=== PATIENT | female | born 1995 | race Caucasian/White ===

== ENCOUNTER 2016-12-14 23:54 | Emergency (ER) | payer OTHER ==
[~2016-12-14] VITALS: Ht 157.5 cm; Wt 84.0 kg
[2016-12-14 23:56] VITALS: Ht 157.5 cm; Wt 84.0 kg
--- NOTE | 2016-12-15 01:24 | ERD ---
ER Documentation Chief Complaint Date/Time DATE: 12/15/16 TIME: 01:11 Chief Complaint LACERATION TO RIGHT RING FINGER X1 HR AGO. +TETANUS HPI 21-year-old female presents to emergency department for laceration wound and the right fourth finger after accidentally cutting it with aluminum blade tonight. Patient discussed pain as sharp pain, 8/10 , is worse upon touching the area. Bleeding is controlled at this time. Patient denies any foreign body. Able to move the joint of the affected finger without any restriction. Unknown last tetanus immunization. ROS All systems reviewed and are negative except as per history of present illness. Medications Home Meds Reported Medications [none] Unknown Strength No Conflict Check 12/15/16 Allergies Allergies: Coded Allergies: No Known Allergy (Unverified , 12/15/16) PMhx/Soc Medical and Surgical Hx: pt denies Medical Hx, pt denies Surgical Hx Hx Alcohol Use: No Hx Substance Use: No Hx Tobacco Use: No Smoking Status: Never smoker FmHx Family History: No coronary disease, No diabetes, No other Physical Exam Vitals Vital Signs Date Time Temp Pulse Resp B/P Pulse Ox O2 Delivery O2 Flow Rate FiO2 12/14/16 23:56 98.2 85 18 122/74 95 Physical Exam GENERAL: The patient is well developed and appropriate for usual state of health, in no apparent distress. CHEST: Clear to auscultation bilaterally. There are no rales, wheezes or rhonchi. HEART: Regular rate and rhythm. No murmurs, clicks, rubs or gallops. No S3 or S4. ABDOMEN: Soft, nontender and nondistended. Good bowel sounds. No rebound or guarding. No gross peritonitis. No gross organomegaly or masses. No Reyes sign or McBurney point tenderness. BACK: No midline or flank tenderness. EXTREMITIES: Equal pulses bilaterally. There is no peripheral clubbing, cyanosis or edema. No focal swelling or erythema. Full range of motion. Grossly neurovascularly intact. NEURO: Alert and oriented. Cranial nerves 2-12 intact. Motor strength in all 4 extremities with 5/5 strength. Sensation grossly intact. Normal speech and gait. SKIN: Noted 1.5 cm superficial laceration wound in the palmar aspect of the right fourth finger, no tendon involvement noted. No foreign body. There is no apparent rash or petechia. The skin is warm and dry. HEMATOLOGIC AND LYMPHATIC: There is no evidence of excessive bruising or lymphedema. No gross cervical, axillary, or inguinal lymphadenopathy. Results 24 hrs Current Medications Medications (Trade) Dose Ordered Sig/Sabrina Route PRN Reason Start Time Stop Time Status Last Admin Dose Admin Diphtheria/ Tetanus/Acell Pertussis (Adacel) 0.5 ml ONCE ONCE IM* 12/15/16 01:30 12/15/16 01:31 DC 12/15/16 02:00 Lidocaine (Xylocaine 2% (Mdv) 20 ml) 2 ml ONCE ONCE INJ 12/15/16 01:30 12/15/16 01:31 DC Tdap was given to prevent tetanus. Patient tolerated medication well. Procedures/MDM Procedure Note: After obtaining informed consent, the wound was irrigated with 250 ml of normal saline and cleaned with diluted betadine. Using aseptic technique, 3 ml of 1% lidocaine was injected on the subcutaneous tissue of the laceration wound for anesthetic. After the anesthetic, the wound was approximated using 3 interrupted sutures of 4-0 Prolene. After the procedure, the wound was well approximated. Patient tolerated procedure well. Bacitracin was applied on the area and a dry dressing. Metal splint was applied afterwards. Medical Decision Making: Patient's pain is most likely consistent with a laceration wound on affected area. No foreign body, no tendon involvement.. There is no suspicion for neurovascular compromise. Patient has intact sensation and circulation of the affected extremity. There is low suspicion for septic arthritis. Patient does not have any fever. Radiology exam is not indicated at this time. Disposition: Home. Patient is given prescription for ibuprofen for pain, Keflex prevent infection. Patient was advised to elevate the affected area and apply ice on affected area. Patient was advised that if symptoms are worse, numbness , tingling, high fever, unable to move joint, worsening symptoms, to return to emergency department immediately. Otherwise, patient is advised to follow up with the primary care doctor in 2 days for wound check, 7-10 days for suture removal Departure Diagnosis: Primary Impression: Finger laceration Encounter type: initial encounter Qualified Code: S61.219A - Finger laceration, initial encounter Condition: Stable Patient Instructions: Laceration, General () Additional Instructions: Patient is given prescription for ibuprofen for pain, Keflex prevent infection. Patient was advised to elevate the affected area and apply ice on affected area. Patient was advised that if symptoms are worse, numbness, tingling, high fever, unable to move joint, worsening symptoms, to return to emergency department immediately. Otherwise, patient is advised to follow up with the primary care doctor in 2 days for wound check, 7-10 days for suture removal MAMADOU CHARLES NP Dec 15, 2016 01:24
[2016-12-15] MEDS ORDERED: DIPHTH/TET/ACEL PERTUSS (ADULT) 0.5 ML VIAL IM* ONE (01:30)
[2016-12-15] MEDS ORDERED: LIDOCAINE 2% (MDV) 20 ML INJ INJ ONE (01:30)
[2016-12-15] MEDS ORDERED: CEPH-443 PO (02:19)
[2016-12-15] MEDS ORDERED: IBUP-1542 PO (02:19)
== END 2016-12-15 02:34 | disposition home or self-care (01) ==
LOC: FTE 23:54
DX: S61.214A Laceration without foreign body of right ring finger without damage to nail, initial encounter (principal); W26.8XXA Contact with other sharp object(s), not elsewhere classified, initial encounter; Y92.9 Unspecified place or not applicable; Z23 Encounter for immunization
CPT/HCPCS: 12001; 90471; 90715; Z7502

== ENCOUNTER 2017-03-17 14:02 | Emergency (ER) | payer OTHER ==
[~2017-03-17] VITALS: Ht 157.5 cm; Wt 88.5 kg
[~2017-03-17 14:02] MED LIST: CEPH-443 PO; IBUP-1542 PO
[2017-03-17 14:05] VITALS: Ht 157.5 cm; Wt 88.5 kg
--- NOTE | 2017-03-17 16:31 | RADRPT ---
PROCEDURE: US Pelvis CLINICAL INDICATION: Vaginal bleeding, pelvic pain TECHNIQUE: Multiple sonographic images of the pelvis were obtained utilizing a transabdominal and endovaginal technique. The images were reviewed on a PACS workstation. COMPARISON: None. LMP: 03/03/2017 FINDINGS: The uterus measures 6.7 x 3.2 x 5.4 cm and is retroverted and retroflexed. The endometrial echo comp alicja measures 13 mm in thickness. No discrete lesion is seen. No abnormal vascularity is identified in the endometrium. The right ovary measures 2.7 x 1.7 x 1.4 cm. The left ovary measures 3.1 x 2.1 x 2.5 cm. There is no rmal vascular flow in both ovaries. No significant ovarian lesions are seen. There is mild free fluid in the right adnexa. IMPRESSION: Unremarkable pelvic ultrasound, as above. RPTAT: EE Physician Nahid Date Time Electronically viewed and signed by Physician Nahid on 03/17/2017 16:31 /
[2017-03-17 16:44] LABS: ADD UMIC YES; UR ASCORBIC ACID NEGATIVE (NEGATIVE); UR BILIRUBIN (Dip) NEGATIVE (NEGATIVE); UR BLOOD (Dip) 3+ mg/dL (NEGATIVE); UR CLARITY CLOUDY (CLEAR); UR COLOR RED (YELLOW); UR GLUCOSE (Dip) NEGATIVE (NEGATIVE); UR KETONES (Dip) NEGATIVE (NEGATIVE); UR LEUKOCYTE ESTERASE (Dip) 3+ Leu/ul (NEGATIVE); UR MUCUS FEW /HPF (NONE SEEN); UR NITRITE (Dip) NEGATIVE (NEGATIVE); UR RBC > 182 /HPF (0-5); UR SPECIFIC GRAVITY (Dip) 1.019 (1.003-1.030); UR SQUAMOUS EPITHELIAL CELL FEW /HPF (FEW); UR TOTAL PROTEIN (Dip) 2+ mg/dl (NEGATIVE); UR UROBILINOGEN (Dip) NEGATIVE (NEGATIVE)
[2017-03-17] MEDS ORDERED: CEPH-443 PO (17:05)
--- NOTE | 2017-03-17 17:15 | ERD ---
ER Documentation Chief Complaint Date/Time DATE: 03/17/17 TIME: 17:08 Chief Complaint lmp 03/09/17 today started bleeding again HPI This is a 21-year-old female presents to the ER with urinary frequency and dysuria that started today. She states that she was bleeding earlier today, and is unsure if bleeding was coming from her urethra or vagina. Patient denies any fevers or chills. She denies any back pain. She has not had any nausea vomiting or diarrhea. She is currently sexually active with 1 partner in a monogamous relationship and uses condoms. His last normal menstrual period was on March 04 and lasted to 09 March. She denies any vaginal discharge, she also denies any abdominal pain. ROS 12 point review of systems was done, all negative except per HPI. Medications Home Meds Active Scripts Cephalexin* (Keflex*) 500 Mg Capsule, 500 MG PO BID for 7 Days, CAP Prov:LELA BRAN 03/17/17 Cephalexin* (Keflex*) 500 Mg Capsule, 500 MG PO QID for 5 Days, CAP Prov:MAMADOU CHARLES NP 12/15/16 Ibuprofen* (Motrin*) 600 Mg Tab, 600 MG PO Q6H Y for PAIN AND OR ELEVATED TEMP, #30 TAB Prov:MAMADOU CHARLES NP 12/15/16 Reported Medications [none] Unknown Strength No Conflict Check 12/15/16 Allergies Allergies: Coded Allergies: No Known Allergy (Unverified , 12/15/16) PMhx/Soc Medical and Surgical Hx: pt denies Medical Hx, pt denies Surgical Hx History of Surgery: No Anesthesia Reaction: No Hx Neurological Disorder: No Hx Respiratory Disorders: No Hx Cardiac Disorders: No Hx Psychiatric Problems: No Hx Miscellaneous Medical Probl: No Hx Alcohol Use: No Hx Substance Use: No Hx Tobacco Use: No Smoking Status: Never smoker Physical Exam Vitals Vital Signs Date Time Temp Pulse Resp B/P Pulse Ox O2 Delivery O2 Flow Rate FiO2 03/17/17 14:05 98.3 95 18 125/72 99 Physical Exam GENERAL: The patient is well developed and appropriate for usual state of health , in no apparent distress. HEENT: Atraumaticbilaterally. There are no rales, wheezes or rhonchi. HEART: Regular rate and rhythm. No murmurs, clicks, rubs or gallops. ABDOMEN: Soft, nontender and nondistended. Good bowel sounds. No rebound or guarding. No gross peritonitis. No gross organomegaly or masses. No Reyes sign or McBurney point tenderness. BACK: No midline or flank tenderness. NEURO: Alert and oriented. SKIN: There is no apparent rash or petechia. The skin is warm and dry. Results 24 hrs Laboratory Tests Test 03/17/17 16:19 Urine Color RED Urine Clarity CLOUDY Urine pH 7.0 Urine Specific [place] 1.019 Urine Ketones NEGATIVEmg/dL Urine Nitrite NEGATIVEmg/dL Urine Bilirubin NEGATIVEmg/dL Urine Urobilinogen NEGATIVEmg/dL Urine Leukocyte Esterase 3+Grace/ul Urine Microscopic RBC > 182/HPF Urine Microscopic WBC > 182/HPF Urine Squamous Epithelial Cells FEW/HPF Urine Mucus FEW/HPF Urine Hemoglobin 3+mg/dL Urine Glucose NEGATIVEmg/dL Urine Total Protein 2+mg/dl Procedures/MDM This is a 21 y/o female that presents to the ER for urinary frequency, dysuria and vaginal bleeding. Patient does have a urinary tract infection, suspicion for pyelonephritis is low, she does not have any CVA tenderness she is afebrile and well-appearing. Her test was negative suspicion for ectopic is low. Her ultrasound was also negative for fibroids or any other abnormality. Patient will be sent home with she is to follow-up with her primary care doctor within 1-2 days return to ER sooner if symptoms worsen. My medical decision making shared with the patient she understands and agrees with plan. Departure Diagnosis: Primary Impression: UTI (urinary tract infection) Condition: Stable Patient Instructions: Understanding Urinary Tract Infections (UTIs) Additional Instructions: Call your primary care doctor TOMORROW for an appointment during the next 1-2 days.See the doctor sooner or return here if your condition worsens before your appointment time. LELA BRAN Mar 17, 2017 17:15
== END 2017-03-17 17:10 | disposition home or self-care (01) ==
LOC: FTE 14:02
DX: N39.0 Urinary tract infection, site not specified (principal)
CPT/HCPCS: 76830; 76856; 81001; Z7502

== ENCOUNTER 2018-03-12 13:53 | Emergency (ER) | END 2018-03-12 17:10 | disposition home or self-care (01) ==

== ENCOUNTER 2018-03-22 06:37 | Emergency (ER) | END 2018-03-22 08:54 | disposition home or self-care (01) ==

== ENCOUNTER 2018-09-01 17:07 | Emergency (ER) | payer OTHER ==
[~2018-09-01] VITALS: Ht 162.6 cm; Wt 93.8 kg
[~2018-09-01 17:07] MED LIST changes: +CIPR500T4 PO; +NORE1TAB12 PO
[2018-09-01 17:33] VITALS: Ht 162.6 cm; Wt 93.8 kg
[2018-09-01] MEDS ORDERED: IBUPROFEN 800 MG TAB PO ONE (21:00)
[2018-09-01] MEDS ORDERED: IBUP-1542 PO (22:17)
--- NOTE | 2018-09-01 22:20 | ERD ---
ER Documentation Chief Complaint Chief Complaint CP today while driving; not in distress HPI Patient is a 23-year-old female with no medical problems who presents with chest pain. The symptoms started at 12 PM. The patient was driving in her car when she started with chest pain. She took a deep breath and then had left-sided chest pain. She had a similar episode 5 years ago. She has had no treatment as of yet. The pain is constant and sharp in nature. She does not currently have a primary doctor. ROS All systems reviewed and are negative except as per history of present illness. Medications Home Meds Active Scripts Ibuprofen* (Motrin*) 600 Mg Tab, 600 MG PO Q6H PRN for PAIN AND OR ELEVATED TEMP, #30 TAB Prov:SUSHILA FERNANDEZ MD 09/01/18 Discontinued Reported Medications [none] Unknown Strength No Conflict Check 12/15/16 Discontinued Scripts Noreth A-Et Estra/Fe Fumarate (LO LOESTRIN FE 1-10 TABLET) 1 Each Tablet, 1 EACH PO DAILY, #28 TAB Prov:MERVIN PRINGLE PA-C 03/22/18 Ciprofloxacin Hcl* (Ciprofloxacin Hcl*) 500 Mg Tablet, 500 MG PO BID for 7 Days, TAB Prov:MERVIN PRINGLE PA-C 03/22/18 Ibuprofen* (Motrin*) 600 Mg Tab, 600 MG PO Q6, #30 TAB Prov:ARMANDO JORGENSEN PA-C 03/12/18 Cephalexin* (Keflex*) 500 Mg Capsule, 500 MG PO BID for 7 Days, CAP Prov:LELA BRAN 03/17/17 Cephalexin* (Keflex*) 500 Mg Capsule, 500 MG PO QID for 5 Days, CAP Prov:MAMADOU CHARLES NP 12/15/16 Ibuprofen* (Motrin*) 600 Mg Tab, 600 MG PO Q6H PRN for PAIN AND OR ELEVATED TEMP, #30 TAB Prov:MAMADOU CHARLES NP 12/15/16 Allergies Allergies: Coded Allergies: No Known Allergy (Unverified , 09/01/18) PMhx/Soc History of Surgery: Yes (nose SX) Anesthesia Reaction: No Hx Neurological Disorder: No Hx Respiratory Disorders: No Hx Cardiac Disorders: No Hx Psychiatric Problems: No Hx Miscellaneous Medical Probl: No Hx Alcohol Use: No Hx Substance Use: No Hx Tobacco Use: No FmHx Family History: coronary disease Physical Exam Vitals Vital Signs Date Temp Pulse Resp B/P (MAP) Pulse Ox O2 O2 Flow FiO2 Time Delivery Rate 09/01/18 99.7 100 20 126/75 100 17:33 (92) Physical Exam Const: No acute distress Head: Atraumatic Eyes: Normal Conjunctiva ENT: Normal External Ears, Nose and Mouth. Neck: Full range of motion. No meningismus. Resp: Clear to auscultation bilaterally Cardio: Regular rate and rhythm, no murmurs, chest wall pain with palpation Abd: Soft, non tender, non distended. Normal bowel sounds Skin: No petechiae or rashes Back: No midline or flank tenderness Ext: No cyanosis, or edema Neur: Awake and alert Psych: Normal Mood and Affect Results 24 hrs Laboratory Tests Test 09/01/18 21:28 POC Beta HCG, Qualitative NEGATIVE Current Medications Medications Dose Sig/Sabrina Start Time Status Last (Trade) Ordered Route PRN Stop Time Admin Dose Reason Admin Ibuprofen 800 mg ONCE ONCE 09/01/18 DC 09/01/18 (Motrin) PO 21:00 21:23 09/01/18 21:01 Procedures/MDM EKG read by me: Rate/Rhythm: Regular rate and rhythm at a rate of 75 Intervals: Normal Impression: No evidence of ischemia or arrhythmia Chest x-ray negative per radiology. Patient is a 23-year-old female who presents with chest pain. She has chest wall pain with palpation. EKG and chest x-ray negative. test is negative. At this point I believe outpatient management is appropriate. I doubt pneumonia, pneumothorax, pulmonary embolism, aortic dissection, or acute coronary syndrome. The patient will need close follow-up with a primary doctor within 24-48 hours. She will be given information for the local clinics. She will be given ibuprofen for pain. Departure Diagnosis: Primary Impression: Chest pain Chest pain type: unspecified Qualified Codes: R07.9 - Chest pain, unspecified Condition: Fair Patient Instructions: Chest Pain, Uncertain Cause Referrals: COMMUNITY CLINICS YOU HAVE RECEIVED A MEDICAL SCREENING EXAM AND THE RESULTS INDICATE THAT YOU DO NOT HAVE A CONDITION THAT REQUIRES URGENT TREATMENT IN THE EMERGENCY DEPARTMENT. FURTHER EVALUATION AND TREATMENT OF YOUR CONDITION CAN WAIT UNTIL YOU ARE SEEN IN YOUR DOCTORS OFFICE WITHIN THE NEXT 1-2 DAYS. IT IS YOUR RESPONSIBILITY TO MAKE AN APPOINTMENT FOR FOLOW-UP CARE. IF YOU HAVE A PRIMARY DOCTOR --you should call your primary doctor and schedule an appointment IF YOU DO NOT HAVE A PRIMARY DOCTOR YOU CAN CALL OUR PHYSICIAN REFERRAL HOTLINE AT IF YOU CAN NOT AFFORD TO SEE A PHYSICIAN YOU CAN CHOSE FROM THE FOLLOWING [facility] CLINICS [facility] [id number] [facility] [address] [facility] [facility] [address] [facility] [address] [facility] [address] [facility]. [facility]. [address] Additional Instructions: Call your primary care doctor TOMORROW for an appointment during the next 1-2 days.See the doctor sooner or return here if your condition worsens before your appointment time. SUSHILA FERNANDEZ MD Sep 01, 2018 22:20
[2018-09-01 22:44] VITALS: BP 118/77; PULSE 66; RESP 18
== END 2018-09-01 22:50 | disposition home or self-care (01) ==
LOC: E/R 17:07
DX: R07.9 Chest pain, unspecified (principal); R40.2142 Coma scale, eyes open, spontaneous, at arrival to emergency department; R40.2252 Coma scale, best verbal response, oriented, at arrival to emergency department; R40.2362 Coma scale, best motor response, obeys commands, at arrival to emergency department
CPT/HCPCS: 71045; 81025; 93005